=== PATIENT | male | born 1960 | race Caucasian/White ===

== ENCOUNTER 2024-07-15 14:46 | Inpatient (IN) | payer OTHER, MEDICAID ==
[~2024-07-15] VITALS: Ht 165.1 cm; Wt 80.7 kg
[2024-07-15 14:46] VITALS: BP_SYST 136; PULSE 53; RESP 18; TEMP 97.9; O2SAT 100
[2024-07-15 15:32] LABS: BASOPHILS % (AUTO) 0.5 % (0.0-2.0); EOSINOPHILS # (AUTO) 0.2 K/uL (0.0-0.4); EOSINOPHILS % (AUTO) 2.8 % (0.0-4.0); HEMATOCRIT 38.5 % (36-54); HEMOGLOBIN 12.9 g/dL (14.0-18.0); LYMPHOCYTES # (AUTO) 1.6 K/uL (1.0-5.5); LYMPHOCYTES % (AUTO) 23.6 % (20.5-51.5); MEAN CORPUSCULAR HEMOGLOBIN 28 pg (27-31); MEAN CORPUSCULAR HGB CONC 34 % (32-36); MEAN CORPUSCULAR VOLUME 84 fL (79.0-98.0); MONOCYTES # (AUTO) 0.7 K/uL (0.0-1.0); MONOCYTES % (AUTO) 9.7 % (1.7-9.3); NEUTROPHILS # (AUTO) 4.4 K/uL (1.8-7.7); NEUTROPHILS % (AUTO) 63.4 % (40.0-70.0); PLATELET COUNT (AUTO) 227 K/uL (130-430); RED BLOOD CELL COUNT(AUTO) 4.59 MIL/uL (4.2-6.2); RED CELL DISTRIBUTION WIDTH 15.2 % (9.0-15.0); WHITE BLOOD COUNT (AUTO) 6.9 K/uL (4.8-10.8)
[2024-07-15 15:33] LABS: INR 1.1 (0.80-1.20); PROTHROMBIN TIME 11.6 SECS (9.5-12.5)
[2024-07-15 15:37] LABS: ALANINE AMINOTRANSFERASE 78 U/L (12-78); ALBUMIN 3.2 g/dL (3.4-4.8); ANION GAP 8 (5-15); ASPARTATE AMINOTRANSFERASE 76 U/L (10-37); BILIRUBIN,DIRECT 0.2 mg/dL (0.0-0.3); CALCIUM 8.8 mg/dL (8.4-11.0); CARBON DIOXIDE 24 mmol/L (23-29); CHLORIDE 105 mmol/L (98-107); CREATININE 1.58 mg/dL (0.55-1.30); GFR AFRICAN AMERICAN 57 mL/min (>90); GLUCOSE 138 mg/dL (74-106); POTASSIUM 3.9 mmol/L (3.5-5.1); SODIUM SERUM 137 mmol/L (136-145); TOTAL BILIRUBIN 0.4 mg/dL (0.0-1.0); TOTAL PROTEIN, SERUM 8.1 g/dL (6.4-8.3); UREA NITROGEN, BLOOD 22 mg/dL (8-21)
[2024-07-15 15:40] LABS: GFR NON AFRICAN-AMERICAN 47 mL/min (>90)
[2024-07-15] MEDS ORDERED: POTA40LI2 PO (16:12)
[2024-07-15] MEDS ORDERED: SPIR25TA PO (16:12)
[2024-07-15] MEDS ORDERED: OLAN15TA3 PO (16:12)
[2024-07-15] MEDS ORDERED: CARV12.548 PO (16:12)
[2024-07-15] MEDS ORDERED: ASPI81CA PO (16:12)
[2024-07-15] MEDS ORDERED: CLON1PAT2 TP (16:12)
[2024-07-15] MEDS ORDERED: RISP2TAB5 PO (16:12)
[2024-07-15] MEDS: NACL 0.9% 1,000 ML IV ONE (16:45)
[2024-07-15] MEDS: ASPIRIN 300 MG/SUPP.RECT SUPP RC ONE ×2 (16:45→16:46)
[2024-07-15] MEDS: KCL 20 mEq in D5/0.45NS 1000mL 1,000 ML IV ONE (17:01)
[2024-07-15 17:06] LABS: BILIRUBIN,URINE NEGATIVE (NEGATIVE); BLOOD, URINE NEGATIVE (NEGATIVE); CLARITY/URINE CLEAR (CLEAR); COLOR,URINE YELLOW (YELLOW); GLUCOSE,URINE 3+ (NEGATIVE); KETONES,URINE NEGATIVE (NEGATIVE); LEUKOCYTE ESTERASE ,URINE NEGATIVE (NEGATIVE); NITRITE, URINE NEGATIVE (NEGATIVE); PROTEIN URINE NEGATIVE (NEGATIVE); UROBILINOGEN,URINE 0.2 (0.2-1.0)
[2024-07-15 17:21] LABS: BARBITURATE, URINE NEGATIVE (NEG <=200); METHAMPHETAMINES SCREEN,URINE NEGATIVE (NEG <=500); URINE AMPHETAMINE NEGATIVE (NEG <=500)
[2024-07-15 17:22] LABS: BENZODIAZEPINE, URINE NEGATIVE (NEG <=150); CANNABINOID, URINE NEGATIVE (NEG <=50); COCAINE, URINE NEGATIVE (NEG <=150); OPIATE, URINE NEGATIVE (NEG <=100); PHENCYCLIDINE SCREEN,URINE NEGATIVE (NEG <=25); UR TRICYCLIC ANTIDEPRESSANTS NEGATIVE (NEG <=300); URINE METHADONE NEGATIVE (NEG <=200); URINE OXYCODONE SCREEN NEGATIVE (NEG <=100)
[2024-07-15 17:56] VITALS: BP_SYST 171; PULSE 50; RESP 17; TEMP 97.1; O2SAT 98
[2024-07-15 20:00] VITALS: BP_SYST 175; PULSE 55; RESP 18; TEMP 97.7; O2SAT 99
[2024-07-15] MEDS: hydrALAZINE HCL 20 MG/ML VIAL IVP PRN (21:03)
[2024-07-15] MEDS: ENOXAPARIN SODIUM 40 MG/0.4 ML SYRINGE SUBCUT SCH (22:04)
[2024-07-16] VITALS (7 sets, daily range): BP systolic 140–154; PULSE 60–70; RESP 16–18; TEMP 97.1–97.8; O2SAT 95–98
[2024-07-16] MEDS: ASPIRIN 300 MG/SUPP.RECT SUPP RC SCH (09:40)
[2024-07-16 15:37] LABS: BILIRUBIN,URINE NEGATIVE (NEGATIVE); CLARITY/URINE CLEAR (CLEAR); COLOR,URINE YELLOW (YELLOW); GLUCOSE,URINE 3+ (NEGATIVE); KETONES,URINE TRACE (NEGATIVE); LEUKOCYTE ESTERASE ,URINE NEGATIVE (NEGATIVE); NITRITE, URINE NEGATIVE (NEGATIVE); PROTEIN URINE NEGATIVE (NEGATIVE)
[2024-07-16 15:44] LABS: BLOOD, URINE TRACE (NEGATIVE)
[2024-07-16 15:45] LABS: BACTERIA,URINE FEW /HPF (None Seen); MUCUS,URINE 1+ /LPF (None Seen); RBC,URINE 0-3 /HPF (0-3); WBC,URINE 0-3 /HPF (0-3)
[2024-07-16 18:12] LABS: CHOLESTEROL 93 mg/dL (<200); HDL CHOLESTEROL 44 mg/dL (>45); TRIGLYCERIDES 55 mg/dL (30-150)
[2024-07-17 00:23] VITALS: BP_SYST 157; PULSE 64; RESP 18; TEMP 97.6
[2024-07-17 08:00] VITALS: BP_SYST 155; PULSE 72; RESP 20; TEMP 97.2; O2SAT 97
[2024-07-17 08:37] LABS: BASOPHILS % (AUTO) 0.4 % (0.0-2.0); EOSINOPHILS # (AUTO) 0.2 K/uL (0.0-0.4); EOSINOPHILS % (AUTO) 2.5 % (0.0-4.0); HEMATOCRIT 42.2 % (36-54); HEMOGLOBIN 13.9 g/dL (14.0-18.0); LYMPHOCYTES # (AUTO) 1.4 K/uL (1.0-5.5); LYMPHOCYTES % (AUTO) 18.2 % (20.5-51.5); MEAN CORPUSCULAR HEMOGLOBIN 28 pg (27-31); MEAN CORPUSCULAR HGB CONC 33 % (32-36); MEAN CORPUSCULAR VOLUME 84 fL (79.0-98.0); MONOCYTES # (AUTO) 0.8 K/uL (0.0-1.0); MONOCYTES % (AUTO) 10.5 % (1.7-9.3); NEUTROPHILS # (AUTO) 5.4 K/uL (1.8-7.7); NEUTROPHILS % (AUTO) 68.4 % (40.0-70.0); PLATELET COUNT (AUTO) 245 K/uL (130-430); RED BLOOD CELL COUNT(AUTO) 5.02 MIL/uL (4.2-6.2); RED CELL DISTRIBUTION WIDTH 15.3 % (9.0-15.0); WHITE BLOOD COUNT (AUTO) 7.9 K/uL (4.8-10.8)
[2024-07-17 08:40] LABS: ALBUMIN 3.1 g/dL (3.4-4.8); CALCIUM 8.7 mg/dL (8.4-11.0); CREATININE 1.12 mg/dL (0.55-1.30); POTASSIUM 3.5 mmol/L (3.5-5.1); TOTAL BILIRUBIN 0.6 mg/dL (0.0-1.0); TOTAL PROTEIN, SERUM 8.2 g/dL (6.4-8.3)
[2024-07-17 11:01] VITALS: BP_SYST 153; PULSE 77; RESP 16; TEMP 96.3; O2SAT 94
[2024-07-17] MEDS: TAMSULOSIN HCL 0.4 MG CAP PO ONE (14:59)
[2024-07-17 15:44] VITALS: BP_SYST 156; PULSE 49; RESP 16; TEMP 96.7; O2SAT 95
[2024-07-17 20:00] VITALS: BP_SYST 154; PULSE 52; RESP 18; TEMP 97.6; O2SAT 96
[2024-07-18] VITALS: BP_SYST 148; PULSE 56; RESP 17; TEMP 98; O2SAT 95
[2024-07-18 07:47] VITALS: BP_SYST 157; PULSE 42; RESP 16; TEMP 98; O2SAT 96
[2024-07-18] MEDS: TAMSULOSIN HCL 0.4 MG CAP PO SCH (08:11)
[2024-07-18 11:04] VITALS: BP_SYST 148; PULSE 62; RESP 16; TEMP 97.6; O2SAT 96
[2024-07-18 15:12] VITALS: BP_SYST 136; PULSE 69; RESP 16; TEMP 97.7; O2SAT 95
[2024-07-18 19:47] VITALS: BP_SYST 161; PULSE 53; RESP 14; TEMP 95.6; O2SAT 96
[2024-07-19 00:20] VITALS: BP_SYST 149; PULSE 61; RESP 16; TEMP 97.6; O2SAT 98
[2024-07-19 07:11] LABS: BASOPHILS # (AUTO) 0.1 K/uL (0.0-0.2); BASOPHILS % (AUTO) 0.7 % (0.0-2.0); EOSINOPHILS # (AUTO) 0.5 K/uL (0.0-0.4); EOSINOPHILS % (AUTO) 6.5 % (0.0-4.0); HEMATOCRIT 39.3 % (36-54); HEMOGLOBIN 13.1 g/dL (14.0-18.0); LYMPHOCYTES # (AUTO) 1.8 K/uL (1.0-5.5); LYMPHOCYTES % (AUTO) 24.5 % (20.5-51.5); MEAN CORPUSCULAR HEMOGLOBIN 28 pg (27-31); MEAN CORPUSCULAR HGB CONC 33 % (32-36); MEAN CORPUSCULAR VOLUME 84 fL (79.0-98.0); MONOCYTES # (AUTO) 0.7 K/uL (0.0-1.0); MONOCYTES % (AUTO) 9.4 % (1.7-9.3); NEUTROPHILS # (AUTO) 4.4 K/uL (1.8-7.7); NEUTROPHILS % (AUTO) 58.9 % (40.0-70.0); PLATELET COUNT (AUTO) 233 K/uL (130-430); RED BLOOD CELL COUNT(AUTO) 4.69 MIL/uL (4.2-6.2); RED CELL DISTRIBUTION WIDTH 15.5 % (9.0-15.0); WHITE BLOOD COUNT (AUTO) 7.4 K/uL (4.8-10.8)
[2024-07-19 08:03] VITALS: BP_SYST 138; PULSE 53; RESP 18; TEMP 97.1; O2SAT 94
[2024-07-19 08:04] LABS: ALBUMIN 2.9 g/dL (3.4-4.8); CALCIUM 8.7 mg/dL (8.4-11.0); CREATININE 1.09 mg/dL (0.55-1.30); POTASSIUM 3.2 mmol/L (3.5-5.1); TOTAL BILIRUBIN 0.3 mg/dL (0.0-1.0); TOTAL PROTEIN, SERUM 7.7 g/dL (6.4-8.3)
[2024-07-19 11:00] VITALS: BP_SYST 138; PULSE 60; RESP 16; TEMP 97.9; O2SAT 96
[2024-07-19 16:00] VITALS: BP_SYST 126; PULSE 62; RESP 16; TEMP 98; O2SAT 98
[2024-07-19 21:00] VITALS: BP_SYST 174; PULSE 50; RESP 14; TEMP 97.3; O2SAT 95
[2024-07-19 21:47] VITALS: O2SAT 95
[2024-07-20] VITALS (8 sets, daily range): BP systolic 139–172; PULSE 60–103; RESP 14–19; TEMP 97.2–98.4; O2SAT 92–98
[2024-07-20 11:24] LABS: CALCIUM 9.1 mg/dL (8.4-11.0); CREATININE 1.02 mg/dL (0.55-1.30); POTASSIUM 3.2 mmol/L (3.5-5.1)
[2024-07-20] MEDS: POTASSIUM CHLORIDE 20 MEQ/PKT PACKET PO ONE (16:34)
[2024-07-21] VITALS (7 sets, daily range): BP systolic 137–169; PULSE 57–85; RESP 16–18; TEMP 97.6–98.4; O2SAT 95–96
[2024-07-21 09:57] LABS: CALCIUM 8.8 mg/dL (8.4-11.0); CREATININE 1.05 mg/dL (0.55-1.30); POTASSIUM 3.4 mmol/L (3.5-5.1)
[2024-07-21] MEDS: ASPIRIN 81 MG TAB.CHEW PO SCH (10:32)
[2024-07-21] MEDS: POTASSIUM CHLORIDE 20 MEQ/PKT PACKET PO ONE (14:32)
[2024-07-22 00:40] VITALS: BP_SYST 175; PULSE 59; RESP 18; TEMP 97.3; O2SAT 97
[2024-07-22 07:45] VITALS: BP_SYST 123; PULSE 60; RESP 17; TEMP 97.3; O2SAT 96
[2024-07-22 10:41] VITALS: O2SAT 96
[2024-07-22 12:39] VITALS: BP_SYST 132; PULSE 62; RESP 18; TEMP 97.5; O2SAT 97
[2024-07-22 15:39] VITALS: BP_SYST 142; PULSE 58; RESP 17; TEMP 97.5; O2SAT 94
[2024-07-22 16:11] VITALS: BP_SYST 126; PULSE 61; RESP 17; TEMP 97.7; O2SAT 96
== END 2024-07-22 18:09 | DRG 64 ==
LOC: SED 14:46 → STU 16:00 → SMU 07-20 11:27
PROVIDERS: ADMIT Family Medicine; ATTEND Family Medicine
DX: I63.9 Cerebral infarction, unspecified (principal); N17.0 Acute kidney failure with tubular necrosis; G81.91 Hemiplegia, unspecified affecting right dominant side; N17.9 Acute kidney failure, unspecified; F31.9 Bipolar disorder, unspecified; R33.9 Retention of urine, unspecified; E86.0 Dehydration; I10 Essential (primary) hypertension; Z88.8 Allergy status to other drugs, medicaments and biological substances; R29.709 NIHSS score 9; R47.81 Slurred speech
CPT/HCPCS: 36415; 70450; 70496; 70498; 70551; 71045; 80048; 80053; 80061; 80076; 80307; 81000; 81001; 81003; 81015; 82948; 83735; 83880; 84484; 85025; 85379; 85610; 85730; 86886; 86900; 86901; 87081; 92610-GN; 93005; 93306; 97110-GP; 97116-GP; 97530-GP; 99291; G0378; J0360; J1650